=== PATIENT | female | born 1965 | race African-American/Black ===

== ENCOUNTER 2017-06-20 20:35 | Emergency (ER) | payer MEDICAID ==
[~2017-06-20] VITALS: Ht 165.1 cm; Wt 76.2 kg
[~2017-06-20 20:35] MED LIST: ASPI81TA50 PO; LISI5TAB7 PO; METF-163 PO
[2017-06-20 21:21] LABS: HEMATOCRIT 42.3 % (34.6-47.8); HEMOGLOBIN 14.9 g/dL (11.7-16.4); WHITE BLOOD COUNT 8.3 x10^3/uL (3.4-10)
[2017-06-20 21:22] LABS: BLOOD UREA NITROGEN 14 mg/dL (7-18)
[2017-06-20] MEDS ORDERED: KETOROLAC 30 MG/1 ML IM ONE (21:30)
[2017-06-20] MEDS ORDERED: KETOROLAC 30 MG/1 ML ONE (21:35)
[2017-06-20 22:52] VITALS: BP 138/90
== END 2017-06-20 22:54 | disposition home or self-care (01) ==
LOC: ED 22:13
DX: E11.40 Type 2 diabetes mellitus with diabetic neuropathy, unspecified (principal); G89.29 Other chronic pain; M79.641 Pain in right hand; M79.642 Pain in left hand; M25.562 Pain in left knee; I10 Essential (primary) hypertension; E11.9 Type 2 diabetes mellitus without complications; F12.10 Cannabis abuse, uncomplicated
CPT/HCPCS: 36415; 73130; 73564; 80048; 82040; 85025; 96372; 99285; J1885

== ENCOUNTER 2018-06-18 05:03 | Emergency (ER) | payer MEDICAID ==
[~2018-06-18] VITALS: Ht 165.1 cm; Wt 77.2 kg
[2018-06-18 05:06] VITALS: BP 161/88
[2018-06-18] MEDS ORDERED: LIDOCAINE 1%, 10ML INFIL ONE (05:30)
[2018-06-18] MEDS ORDERED: LIDOCAINE-MPF 2%, 2ML ONE (05:34)
[2018-06-18] MEDS ORDERED: CLINDAMYCIN PMX 600MG/50ML 50 ML ONE (05:41)
[2018-06-18] MEDS ORDERED: SODIUM CHLORIDE 0.9% 1,000ML IVBOLUS ONE (06:00)
[2018-06-18] MEDS ORDERED: CLINDAMYCIN PMX 600MG/50ML 50 ML IV ONE (06:00)
[2018-06-18] MEDS ORDERED: SODIUM CHLORIDE FLUSH 10ML SYR IVF ONE (06:00)
[2018-06-18] MEDS ORDERED: BACITRACIN ZINC OINT 500U/GM, 0.9 GM ONE (06:17)
== END 2018-06-18 06:50 | disposition home or self-care (01) ==
LOC: ED 05:28
DX: L03.116 Cellulitis of left lower limb (principal); L03.115 Cellulitis of right lower limb; Z88.6 Allergy status to analgesic agent; Z88.0 Allergy status to penicillin
CPT/HCPCS: 10060; 73660; 82962; 96365; 99284; J7030

== ENCOUNTER 2019-03-28 16:14 | Inpatient (IN) | payer OTHER, MEDICAID ==
[~2019-03-28] VITALS: Ht 165.1 cm; Wt 74.0 kg
--- NOTE | 2019-03-28 16:22 | NUR ---
Pt BIB EMS form [facility] for NVD x several days. Pt had BG of 505 by EMS. Received 1L [employer]. Pt vomited 5x today. Hypotensive at [facility] with BP of 88/60. VSS at this time.
[2019-03-28] MEDS ORDERED: SODIUM CHLORIDE 0.9% 1,000ML IVBOLUS ONE ×2 (17:00→18:00)
[2019-03-28] MEDS ORDERED: SODIUM CHLORIDE FLUSH 10ML SYR IVF ONE (17:00)
[2019-03-28] MEDS ORDERED: ONDANSETRON 2MG/ML, 2ML ONE (17:16)
[2019-03-28 17:17] LABS: ACETONE, SERUM Moderate(40mg/dL) mg/dL (Negative)
[2019-03-28 17:19] LABS: ALANINE AMINOTRANSFERASE 44 U/L (12-78); ALBUMIN 3.7 g/dL (3.4-5.0); ANION GAP 15 mmol/L (5-15); CALCIUM 8.6 mg/dL (8.5-10.1); CHLORIDE 84 mmol/L (98-107); CREATININE 3.47 mg/dL (0.55-1.02)
[2019-03-28 17:21] LABS: ALKALINE PHOSPHATASE 91 U/L (45-117); BILIRUBIN,TOTAL 0.5 mg/dL (0.2-1.0); TOTAL PROTEIN 8.3 g/dL (6.4-8.2)
[2019-03-28 17:28] LABS: MEAN CORPUSCULAR HEMOGLOBIN 32.5 pg (27.0-34.8); MEAN CORPUSCULAR HGB CONC 34.3 g/dL (32.4-35.8); MEAN CORPUSCULAR VOLUME 94.9 fL (80-100); MEAN PLATELET VOLUME 9.9 fL (7.4-10.4); PLATELET COUNT 287 x10^3/uL (130-400); RED BLOOD COUNT 5.11 x10^6/uL (3.82-5.3); RED CELL DISTRIBUTION WIDTH 12.2 % (9.6-15.2)
[2019-03-28] MEDS ORDERED: ONDANSETRON 2MG/ML, 2ML IVPush ONE (17:30)
[2019-03-28] MEDS ORDERED: LISI-170 PO (17:33)
[2019-03-28] MEDS ORDERED: VENL75TA2 PO (17:33)
[2019-03-28] MEDS ORDERED: ATOR20TA37 PO (17:33)
[2019-03-28] MEDS ORDERED: MELO7.5T31 PO (17:33)
[2019-03-28] MEDS ORDERED: ONDA4TAB13 SL (17:33)
[2019-03-28 17:39] LABS: BASOPHILS # (AUTO) 0.03 x10^3/uL (0-0.1); BASOPHILS % (AUTO) 0 % (0-1); EOSINOPHILS # (AUTO) 0.01 x10^3/uL (0-0.4); EOSINOPHILS % (AUTO) 0 % (1-7); LYMPHOCYTES # (AUTO) 2.15 x10^3/uL (1-3.4); LYMPHOCYTES % (AUTO) 17 % (22-44); MD SCAN; MONOCYTES # (AUTO) 0.62 x10^3/uL (0.2-0.8); MONOCYTES % (AUTO) 5 % (2-9); NEUTROPHILS # (AUTO) 10.15 x10^3/uL (1.8-6.8); NEUTROPHILS % (AUTO) 78 % (42-75)
[2019-03-28] MEDS ORDERED: SODIUM CHLORIDE 0.9% 1,000 ML IV ONE (18:00)
[2019-03-28 18:33] LABS: CLOSTRIDIUM DIFFICILE ANTIGEN NEGATIVE; CLOSTRIDIUM DIFFICILE TOXIN NEGATIVE (Negative)
[2019-03-28] MEDS ORDERED: morphine SULFATE 10 MG/ML, 1ML IVPush PRN (19:00)
[2019-03-28] MEDS ORDERED: hydrALAzine 20 MG/ML, 1ML IVPush PRN (19:00)
[2019-03-28] MEDS: NICOTINE 14MG/24 HR PATCH.TD24 TD SCH (19:00)
--- NOTE | 2019-03-28 19:29 | NUR ---
REPORT TO ABRAHAM JAY FOR ROOM 421. ROOM NOT CLEANED AT THIS TIME. WILL CONTINUE TO MONITOR PT.
[2019-03-28 20:26] VITALS: BP 151/92
[2019-03-28] MEDS ORDERED: ATORVASTATIN 20 MG TABLET PO SCH (21:00)
[2019-03-28] MEDS: SODIUM CHLORIDE 0.9% 1,000 ML IV SCH (21:54)
[2019-03-28] MEDS: ONDANSETRON 2MG/ML, 2ML IVPush PRN (21:54)
[2019-03-28] MEDS: INSULIN LISPRO 100 UNITS/ML, PEN SQ-INSULIN SCH (22:04)
[2019-03-29 02:21] VITALS: BP 125/84
[2019-03-29 04:25] LABS: MICROSCOPIC AUTO
[2019-03-29 04:26] LABS: CHLORIDE,URINE RANDOM 20 mmol/L; POTASSIUM,URINE RANDOM 17 mmol/L; SODIUM,URINE RANDOM 37 mmol/L
[2019-03-29] MEDS: SODIUM CHLORIDE 0.9% 1,000 ML IV SCH ×3 (04:30→21:47)
[2019-03-29 04:32] LABS: CULTURE INDICATED? YES
[2019-03-29 06:42] LABS: MEAN CORPUSCULAR HEMOGLOBIN 32.1 pg (27.0-34.8); MEAN CORPUSCULAR HGB CONC 33.5 g/dL (32.4-35.8); MEAN CORPUSCULAR VOLUME 95.7 fL (80-100); MEAN PLATELET VOLUME 9.6 fL (7.4-10.4); PLATELET COUNT 209 x10^3/uL (130-400); RED BLOOD COUNT 4.39 x10^6/uL (3.82-5.3); RED CELL DISTRIBUTION WIDTH 12.3 % (9.6-15.2)
[2019-03-29 06:48] VITALS: BP 113/69
[2019-03-29 06:49] LABS: ALANINE AMINOTRANSFERASE 34 U/L (12-78); ANION GAP 9 mmol/L (5-15); CALCIUM 7.7 mg/dL (8.5-10.1); CHLORIDE 99 mmol/L (98-107); CREATININE 1.95 mg/dL (0.55-1.02)
[2019-03-29 06:51] LABS: ALKALINE PHOSPHATASE 73 U/L (45-117); BILIRUBIN,TOTAL 0.6 mg/dL (0.2-1.0); TOTAL PROTEIN 6.9 g/dL (6.4-8.2)
[2019-03-29] MEDS: INSULIN LISPRO 100 UNITS/ML, PEN SQ-INSULIN SCH ×5 (07:00→21:00)
[2019-03-29 07:02] LABS: BASOPHILS % (AUTO) 0 % (0-1); EOSINOPHILS # (AUTO) 0.08 x10^3/uL (0-0.4); EOSINOPHILS % (AUTO) 1 % (1-7); LYMPHOCYTES % (AUTO) 30 % (22-44); MD SCAN; MONOCYTES # (AUTO) 0.68 x10^3/uL (0.2-0.8); MONOCYTES % (AUTO) 6 % (2-9); NEUTROPHILS # (AUTO) 7.05 x10^3/uL (1.8-6.8); NEUTROPHILS % (AUTO) 63 % (42-75)
[2019-03-29] MEDS: CEFTRIAXONE PMX 1GM/50ML 50 ML IV SCH (08:37)
[2019-03-29 12:44] VITALS: BP 130/68
[2019-03-29 19:59] VITALS: BP 161/84
[2019-03-29] MEDS: NICOTINE 14MG/24 HR PATCH.TD24 TD SCH (21:00)
[2019-03-29] MEDS: ONDANSETRON 2MG/ML, 2ML IVPush PRN (22:10)
[2019-03-29] MEDS ORDERED: EPINEPHRINE 1 MG/ML, 1ML ONE (22:13)
[2019-03-29] MEDS ORDERED: BUPIVACAINE/PF 0.5% ONE (22:13)
[2019-03-30] MEDS ORDERED: hydrALAzine 20 MG/ML, 1ML ONE (00:44)
[2019-03-30 02:58] VITALS: BP 131/75
[2019-03-30] MEDS: SODIUM CHLORIDE 0.9% 1,000 ML IV SCH (04:08)
[2019-03-30] MEDS: INSULIN LISPRO 100 UNITS/ML, PEN SQ-INSULIN SCH ×4 (07:00→20:44)
[2019-03-30 07:22] LABS: BASOPHILS # (AUTO) 0.05 x10^3/uL (0-0.1); BASOPHILS % (AUTO) 1 % (0-1); EOSINOPHILS # (AUTO) 0.06 x10^3/uL (0-0.4); EOSINOPHILS % (AUTO) 1 % (1-7); LYMPHOCYTES # (AUTO) 3.39 x10^3/uL (1-3.4); LYMPHOCYTES % (AUTO) 45 % (22-44); MD NO; MEAN CORPUSCULAR HGB CONC 33.9 g/dL (32.4-35.8); MEAN CORPUSCULAR VOLUME 94.4 fL (80-100); MEAN PLATELET VOLUME 9.4 fL (7.4-10.4); MONOCYTES # (AUTO) 0.48 x10^3/uL (0.2-0.8); MONOCYTES % (AUTO) 6 % (2-9); NEUTROPHILS # (AUTO) 3.63 x10^3/uL (1.8-6.8); NEUTROPHILS % (AUTO) 48 % (42-75); PLATELET COUNT 195 x10^3/uL (130-400); RED BLOOD COUNT 4.16 x10^6/uL (3.82-5.3); RED CELL DISTRIBUTION WIDTH 12.5 % (9.6-15.2)
[2019-03-30 07:33] LABS: ANION GAP 5 mmol/L (5-15); CALCIUM 8.1 mg/dL (8.5-10.1); CHLORIDE 104 mmol/L (98-107); CREATININE 1.03 mg/dL (0.55-1.02)
[2019-03-30 07:38] VITALS: BP 123/67
[2019-03-30] MEDS: CEFTRIAXONE PMX 1GM/50ML 50 ML IV SCH (08:00)
[2019-03-30] MEDS ORDERED: ACETAMINOPHEN 325 MG TABLET PO PRN (09:00)
[2019-03-30 12:47] VITALS: BP 146/80
[2019-03-30] MEDS ORDERED: SODIUM CHLORIDE 0.9% 1,000 ML IV SCH (19:00)
[2019-03-30] MEDS: NICOTINE 14MG/24 HR PATCH.TD24 TD SCH (21:00)
[2019-03-30] MEDS ORDERED: FAMOTIDINE 20 MG TABLET PO SCH (21:00)
[2019-03-30 21:25] VITALS: BP 109/70
[2019-03-31 02:23] VITALS: BP 123/70
[2019-03-31 04:41] LABS: ALBUMIN 2.9 g/dL (3.4-5.0); ANION GAP 4 mmol/L (5-15); CALCIUM 8.2 mg/dL (8.5-10.1); CHLORIDE 102 mmol/L (98-107)
[2019-03-31 04:43] LABS: CREATININE 0.87 mg/dL (0.55-1.02)
[2019-03-31] MEDS ORDERED: SODIUM PHOSPHATE 30 MMOL in SODIUM CHLORIDE 0.9% 500 ML IV ONE (07:00)
[2019-03-31] MEDS: INSULIN LISPRO 100 UNITS/ML, PEN SQ-INSULIN SCH ×2 (07:00→11:12)
[2019-03-31] MEDS ORDERED: GLIP5TAB10 PO (07:06)
[2019-03-31] MEDS ORDERED: POLYETHYLENE GLYCOL 17 GM PACKET NG ONE (07:30)
[2019-03-31 08:00] VITALS: BP 127/79
[2019-03-31] MEDS ORDERED: SENNA/DOCUSATE TABLET PO SCH (09:00)
[2019-03-31] MEDS ORDERED: NEUTRA PHOS K 250 MG TABLET PO SCH ×3 (11:30→16:00)
[2019-03-31 13:19] VITALS: BP 129/76
== END 2019-03-31 13:22 | disposition home or self-care (01) | DRG 689 ==
LOC: ED 16:30 → EDIP 18:34 → 4WST 20:13
PROVIDERS: ADMIT Internal Medicine; ATTEND Internal Medicine
PROC: 0T9B70Z Drainage of Bladder with Drainage Device, Via Natural or Artificial Opening (ICD-10-PCS; principal; 2019-03-29)
DX: N39.0 Urinary tract infection, site not specified (principal); N17.0 Acute kidney failure with tubular necrosis; E87.1 Hypo-osmolality and hyponatremia; E87.2 Acidosis; D72.828 Other elevated white blood cell count; D75.1 Secondary polycythemia; E11.22 Type 2 diabetes mellitus with diabetic chronic kidney disease; E11.65 Type 2 diabetes mellitus with hyperglycemia; E78.5 Hyperlipidemia, unspecified; E88.09 Other disorders of plasma-protein metabolism, not elsewhere classified; F12.90 Cannabis use, unspecified, uncomplicated; F17.200 Nicotine dependence, unspecified, uncomplicated; F45.8 Other somatoform disorders; I12.9 Hypertensive chronic kidney disease with stage 1 through stage 4 chronic kidney disease, or unspecified chronic kidney disease; K21.9 Gastro-esophageal reflux disease without esophagitis; N18.3 Chronic kidney disease, stage 3 (moderate); Q63.1 Lobulated, fused and horseshoe kidney; Z80.9 Family history of malignant neoplasm, unspecified; Z88.6 Allergy status to analgesic agent; Z88.0 Allergy status to penicillin; Z91.013 Allergy to seafood; Z90.711 Acquired absence of uterus with remaining cervical stump
CPT/HCPCS: 36415; 74022; 87046; 87427; 96361; 99291; S0020; 76770; 80048; 80053; 80069; 81001; 82010; 82436; 82962; 83036; 83605; 83690; 83735; 84133; 84300; 85025; 87040; 87077; 87086; 87186; 87324; 89055; 93005; 96374; G0378; J0171; J0696; J2405; J1815; J2270; J7030; J7040

== ENCOUNTER 2021-07-05 20:39 | Emergency (ER) | payer MEDICAID ==
[~2021-07-05] VITALS: Ht 165.1 cm; Wt 72.4 kg
[2021-07-06 00:52] VITALS: BP 192/90
== END 2021-07-06 00:32 | disposition home or self-care (01) ==
LOC: ED 20:45
DX: R10.84 Generalized abdominal pain (principal); R11.2 Nausea with vomiting, unspecified; E11.65 Type 2 diabetes mellitus with hyperglycemia; I10 Essential (primary) hypertension; E78.5 Hyperlipidemia, unspecified; F17.200 Nicotine dependence, unspecified, uncomplicated; Z90.49 Acquired absence of other specified parts of digestive tract
CPT/HCPCS: 36415; 74022; 80053; 83690; 85025; 93005; 96361; 96374; 96375; 99285; J1885; J2405; J7030